=== PATIENT | male | born 1980 | race Caucasian/White ===

== ENCOUNTER 2020-12-01 10:26 | Emergency (ER) | payer OTHER ==
[~2020-12-01] VITALS: Ht 185.4 cm; Wt 93.0 kg
[2020-12-01] MEDS ORDERED: BACTRIM DS TAB1 EACH PO (12:17)
[2020-12-01 12:32] VITALS: BP 155/89
== END 2020-12-01 12:32 | disposition home or self-care (01) ==
LOC: ER 10:26
DX: S60.453A Superficial foreign body of left middle finger, initial encounter (principal); W29.4XXA Contact with nail gun, initial encounter; Y93.89 Activity, other specified; Y92.89 Other specified places as the place of occurrence of the external cause; Y99.8 Other external cause status